=== PATIENT | male | born 1965 | race Caucasian/White ===

== ENCOUNTER 2021-05-08 17:51 | Inpatient (IN) | payer OTHER ==
[~2021-05-08] VITALS: Ht 185.4 cm; Wt 110.3 kg
--- NOTE | 2021-05-08 18:00 | NUR ---
TO ER BED 3. [id number] C/O BLE WEAKNESS,"KNEES GAVE OUT. 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 PT ATTCHED TO MONITOR. DIALYSIS ACCES R CHEST PORT. DR ONEILL AT BEDSIDE
[2021-05-08 19:21] LABS: CALCIUM, SERUM 7.7 mg/dL (8.5-10.1); CARBON DIOXIDE 27 mmol/L (21-32); CHLORIDE 93 mmol/L (98-107); POTASSIUM 4.8 mmol/L (3.5-5.1); SODIUM SERUM 128 mmol/L (136-145); UREA NITROGEN, BLOOD 58 mg/dL (7-18)
[2021-05-08 19:23] LABS: GLUCOSE 474 mg/dL (74-106)
--- NOTE | 2021-05-08 19:23 | NUR ---
glucose 474
[2021-05-08 19:27] LABS: ALANINE AMINOTRANSFERASE 55 U/L (12-78); ALBUMIN 2.1 g/dL (3.4-5.0); ALCOHOL, BLOOD < 3 mg/dL (0-0); ALKALINE PHOSPHATASE 89 U/L (46-116); ASPARTATE AMINOTRANSFERASE 34 U/L (15-37); BILIRUBIN,DIRECT 0.1 mg/dL (0.0-0.2); BILIRUBIN,TOTAL 0.3 mg/dL (0.2-1.0); TOTAL PROTEIN, SERUM 6.2 g/dL (6.4-8.2)
[2021-05-08 19:33] LABS: THYROID STIMULATING HORMONE 0.882 uIU/mL (0.358-3.74)
--- NOTE | 2021-05-08 19:39 | NUR ---
POC ACCUCHECK 421; DR. NINO PONCE AWARE. COVID ANTIGEN SWAB COLLECTED AND SENT TO LAB
[2021-05-08] MEDS ORDERED: INSULIN REGULAR, HUMAN 100 UNIT/ML 10 ML VIAL ONE (19:40)
[2021-05-08 20:00] LABS: BASOPHILS % (AUTO) 0.1 % (0.0-2.0); HEMATOCRIT 21 % (39-51); LYMPHOCYTES # (AUTO) 0.4 K/uL (0.8-4.8); LYMPHOCYTES % (AUTO) 1.9 % (20.0-44.0); MEAN CORPUSCULAR HGB CONC 31 g/dl (31.0-36.0); MEAN CORPUSCULAR VOLUME 94 fL (80-96); MONOCYTES # (AUTO) 0.7 K/uL (0.1-1.30); MONOCYTES % (AUTO) 3.6 % (2.0-12.0); NEUTROPHILS # (AUTO) 19.5 K/uL (1.8-8.9); NEUTROPHILS % (AUTO) 94.4 % (43.0-81.0); PLATELET COUNT (AUTO) 259 K/uL (150-450); RED BLOOD CELL COUNT(AUTO) 2.25 MIL/uL (4.5-6.0); WHITE BLOOD COUNT (AUTO) 20.7 K/uL (4.3-11.0)
[2021-05-08] MEDS ORDERED: INSULIN REGULAR, HUMAN 100 UNIT/ML 10 ML VIAL IV ONE (20:00)
[2021-05-08 20:01] LABS: HEMOGLOBIN 6.6 g/dL (13.5-17.5)
--- NOTE | 2021-05-08 20:02 | NUR ---
HBG 6.6 DR ONEILL AWARE
[2021-05-08 20:27] LABS: LYMPHOCYTES % (MANUAL) 1 % (16-48); NEUTROPHILS % (MANUAL) 99 (42-76)
--- NOTE | 2021-05-08 20:33 | NUR ---
REPEAT POC BS 405
--- NOTE | 2021-05-08 20:40 | NUR ---
PT SIGNED CONSENT FOR BLOOD TRANSFUSION
--- NOTE | 2021-05-08 21:20 | NUR ---
REPORT GIVEN TO MAMADOU KRAUSE RN
--- NOTE | 2021-05-08 22:13 | NUR ---
PT TAKEN TO JIMI VIA ACLS PROTOCOL. ALL BELONGINGS WITH PT. PT TOLERATING TRANSFER WELL
[2021-05-08 22:30] VITALS: BP 157/84
[2021-05-08] MEDS ORDERED: MAG HYDROX/AL HYDROX/SIMETH 30 ML UDC PO PRN (22:30)
[2021-05-08] MEDS ORDERED: ONDANSETRON HCL/PF 4 MG/2 ML VIAL IVP PRN (22:30)
[2021-05-08] MEDS ORDERED: Z GUARD REMEDY 4 OZ OINT TP PRN (22:30)
[2021-05-08] MEDS ORDERED: ZOLPIDEM TARTRATE 5 MG TABLET PO PRN (22:30)
[2021-05-08] MEDS ORDERED: ACETAMINOPHEN 325 MG TABLET PO PRN (22:30)
[2021-05-08] MEDS ORDERED: MAGNESIUM HYDROXIDE 30 ML UDC PO PRN (22:30)
--- NOTE | 2021-05-08 22:30 | NUR ---
JIMI/PETROLEUM TERMINAL PLANT OPERATOR PT RECIEVED FROM ER. SEE FLOWSHEET FOR ASSESSMENT. CALL LIGHT WITHIN REACH. NO ACUTE DISTRESS SEEN AT THIS TIME. PT APPEARS TO BE ANGRY. REFUSED TO TAKE CLOTHES OFF TO PLACE GOWN. PT SIGNED A LOT WHEN TOLD HIM ABOUT PLAN OF CARE. PT WANTS TO EAT HOWEVER BLOOD SUGAR IS 470 IN ER. WILL CHECK AGAIN
[2021-05-08] MEDS ORDERED: DEXTROSE 50%-WATER 50 ML DISP.SYRIN IV PRN (23:00)
--- NOTE | 2021-05-08 23:30 | NUR ---
JIMI/CASE WORK AIDE PT EXPRESSED IDEA ABOUT LEAVING, THAT IS WHY HE DOESN'T WANT TO GET UNDRESSED.
[2021-05-08] MEDS: *INSULIN REGULAR(HUMULIN R)HUM 100 UNIT/ML VIAL SQ PRN (23:34)
[2021-05-09] VITALS (9 sets, daily range): BP systolic 156–201; BP diastolic 75–116
--- NOTE | 2021-05-09 00:10 | NUR ---
JIMI/TICKET TAKER MIDNIGHT SPOT CHECK OF BLOOD SUGAR IS 390, THIS WAS COVERED WITH SLIDING SCALE. WILL CONTINUE TO MONITOR THIS PT.
--- NOTE | 2021-05-09 02:25 | NUR ---
JIMI/WEDDING COORDINATOR PT IS TO GET 1 UNIT PRBC. ORDER WAS VERIFIED FROM STAND GRINDER MD PRINCE WHICH WAS THEN PLACED IN THE COMPUTER BY CHARGE NURSE. BLOOD BANK WAS MADE AWARE. CONSENT WAS SIGNED.
--- NOTE | 2021-05-09 04:40 | NUR ---
JIMI/ROOM SERVICE CLERK PT IS TO HAVE BLOOD, 1 UNIT PRBC FOR LOW H/H WHICH IS 6.6/21. BLOOD IS READY, HOWEVER PT SAID HE IS NOT SURE IF HE WANTS TO RECEIVE THE BLOOD. CHARGE NURSE IS AWARE OF THIS.
[2021-05-09 07:02] LABS: BASOPHILS % (AUTO) 0.1 % (0.0-2.0); LYMPHOCYTES # (AUTO) 0.9 K/uL (0.8-4.8); LYMPHOCYTES % (AUTO) 4.5 % (20.0-44.0); MEAN CORPUSCULAR HGB CONC 32 g/dl (31.0-36.0); MEAN CORPUSCULAR VOLUME 92 fL (80-96); MONOCYTES # (AUTO) 1.2 K/uL (0.1-1.30); MONOCYTES % (AUTO) 6.1 % (2.0-12.0); NEUTROPHILS # (AUTO) 18.2 K/uL (1.8-8.9); NEUTROPHILS % (AUTO) 89.3 % (43.0-81.0); PLATELET COUNT (AUTO) 260 K/uL (150-450); RED BLOOD CELL COUNT(AUTO) 2.23 MIL/uL (4.5-6.0); WHITE BLOOD COUNT (AUTO) 20.4 K/uL (4.3-11.0)
[2021-05-09 07:19] LABS: HEMOGLOBIN 6.5 g/dL (13.5-17.5)
[2021-05-09 07:20] LABS: CALCIUM, SERUM 8.8 mg/dL (8.5-10.1); CREATININE 5.2 mg/dL (0.6-1.3); HEMATOCRIT 20 % (39-51); MAGNESIUM 2.3 mg/dL (1.8-2.4); PHOSPHORUS 4.1 mg/dL (2.5-4.9); POTASSIUM 4.6 mmol/L (3.5-5.1)
[2021-05-09 07:26] LABS: THYROID STIMULATING HORMONE 0.474 uIU/mL (0.358-3.74)
[2021-05-09] MEDS: PANTOPRAZOLE 40 MG TABLET.DR PO SCH ×2 (07:30→08:08)
[2021-05-09] MEDS: BLOOD SUGAR DIAGNOSTIC 1 EACH STRIP VI SCH ×4 (08:08→22:04)
[2021-05-09] MEDS: INSULIN REGULAR, HUMAN 100 UNIT/ML 3 ML VIAL SQ PRN ×3 (08:09→17:16)
--- NOTE | 2021-05-09 11:55 | NUR ---
RN NOTE TOLD BY DR SLAUGHTER THAT HE ATTEMPTED TO CONTACT DR. RUBEN CAMARA FROM [facility], PATIENT'S PERSONAL HIDE BUYER REGARDING POC. DR. SLAUGHTER REPORTED LEFT A MESSAGE AND IS WAITING FOR CALL BACK. WILL CONTINUE TO MONITOR.
[2021-05-09] MEDS ORDERED: LACOSAMIDE ORAL SOLN 50 MG/5 ML UDC PO ONE (12:00)
--- NOTE | 2021-05-09 12:16 | NUR ---
RN NOTE CALLED BACK BY DR. SLAUGHTER REGARDING DR. CAMARA'S WISHES FOR POC. DR. SLAUGHTER REPORTED AGREEMENT FROM DR. MARINA TO PROCEED WITH POC OF BLOOD TRANSFUSION AND HD TODAY.
[2021-05-09] MEDS ORDERED: FURO40TA5 PO (13:38)
[2021-05-09] MEDS ORDERED: LACO50TA2 PO (13:38)
[2021-05-09] MEDS ORDERED: ERGO500093 PO (13:38)
[2021-05-09] MEDS ORDERED: SODI650T PO (13:38)
[2021-05-09] MEDS ORDERED: SEVE800T28 PO (13:38)
[2021-05-09] MEDS ORDERED: PRED20TA PO (13:38)
[2021-05-09] MEDS ORDERED: ATOR40TA PO (13:38)
[2021-05-09] MEDS ORDERED: DOCU-141 PO (13:38)
[2021-05-09] MEDS ORDERED: ASPI-1420 PO (13:38)
[2021-05-09] MEDS ORDERED: AZAT50TA18 PO (13:38)
[2021-05-09] MEDS ORDERED: FOLI0.8T2 PO (13:38)
[2021-05-09] MEDS ORDERED: CARV25TA2 PO (13:38)
[2021-05-09] MEDS ORDERED: LOSA25TA27 PO (13:38)
[2021-05-09] MEDS ORDERED: BUME2TAB7 PO (13:38)
[2021-05-09] MEDS ORDERED: NIFE90TA38 PO (13:38)
--- NOTE | 2021-05-09 14:01 | NUR ---
RN OPENING NOTE PATIENT RECEIVED IN BED, RESTING. PATIENT ON ROOM AIR WITH NO SIGNS OF LABORED BREATHING AT THIS TIME. RIGHT FA 20G SL IN PLACE, RIGHT CHEST WALL HD CATH. NO SIGNS OF ACUTE DISTRESS NOTED AT THIS TIME. BED LOCKED AND IN LOWEST POSITION, CALL LIGHT WITHIN REACH, 2 SIDE RAILS UP. WILL CONTINUE TO MONITOR.
--- NOTE | 2021-05-09 17:05 | NUR ---
RN NOTE BLOOD PRESSURE ELEVATED DURING HD. REQUESTED FROM DR. RUIZ TO REVIEW MED RECON. NO NEW ORDER AT THIS TIME. WILL CONTINUE TO MONITOR.
--- NOTE | 2021-05-09 18:10 | NUR ---
RN NOTE DR. SLAUGHTER CONTACT CONCERNING ELEVATED BLOOD PRESSURE. HD STOPPED DUE TO BP REACHING 201/101. NO RESPONSE AT THIS TIME. WILL CONTINUE TO MONITOR.
--- NOTE | 2021-05-09 18:12 | NUR ---
RN NOTE NO RESPONSE FROM DR. YAÑEZ THROUGH TEXTS OR PHONE CALL. [facility] CALLED AND MESSAGE LEFT. WILL CONTINUE TO MONITOR.
--- NOTE | 2021-05-09 18:41 | NUR ---
RN NOTE DR. YAÑEZ CALLED BACK, ORDERED TO TAKE BP MANUALLY. BP IS 186/108. PER DR. YAÑEZ ORDER, RESUME BLOOD TRANSFUSION AND GIVE LASIX 20 IV ONE TIME AFTER. WILL CONTINUE TO MONITOR.
--- NOTE | 2021-05-09 18:42 | NUR ---
RN NOTE DR. HAIR CONTACTED REGARDING ELEVATED BLOOD PRESSURE. ORDER TO GIVE CLONIDINE 0.1 ONCE. WILL CONTINUE TO MONITOR.
[2021-05-09] MEDS ORDERED: CLONIDINE HCL 0.1 MG TABLET PO ONE (19:00)
--- NOTE | 2021-05-09 19:01 | NUR ---
RN NOTE BLOOD TRANSFUSION ENDED. BLOOD PRESSURE ELEVATED. CLONIDINE GIVEN ORDERED. WILL ENDORSE TO DIRECTOR OF BUSINESS OPERATIONS NURSE.
--- NOTE | 2021-05-09 19:10 | NUR ---
RN NOTES RECEIVED REPORT MORNING RN. PATIENT IS A/O X4 ABLE TO MAKE NEEDS KNOW. WITH IV ACCESS AT RFA # 20 PATENT FLUSHES WELL. S/P HD. VITAL SIGNS TAKEN AND RECORDED AFEBRILE. ALL SAFETY MEASURES IN PLACE AT ALL TIMES. HOB ELEVATED. CALL LIGHT WITHIN REACH. WILL CLOSELY MONITOR THE PATIENT
--- NOTE | 2021-05-09 19:25 | NUR ---
RN CLOSING NOTE PATIENT REMAINS IN BED, AWAKE, A&OX4. PATIENT ON ROOM AIR WITH NO SIGNS OF LABORED BREATHING AT THIS TIME. RIGHT FA 20G SL IN PLACE, RIGHT CHEST WALL HD CATH. NO SIGNS OF ACUTE DISTRESS NOTED AT THIS TIME. BP REMAINS ELEVATED AT THIS TIME. HD COMPLETED, 3,000 CC REMOVED AND BLOOD TRANSFUSION COMPLETED. BED LOCKED AND IN LOWEST POSITION, CALL LIGHT WITHIN REACH, 2 SIDE RAILS UP. WILL ENDORSE TO STATUS CONTROLLER NURSE.
[2021-05-09] MEDS ORDERED: FUROSEMIDE 20 MG/2 ML VIAL IV ONE (19:30)
--- NOTE | 2021-05-09 20:40 | NUR ---
RN NOTES NOTED BP WAS ELEVATED 180/85. DR. LAY INFORMED WITH NEW ORDER HYDRALAZINE 25 MG PO. PATIENT REFUSED TO TAKE THE MEDICATION NOW HE WILL LATER HE JUST WANT TO SLEEP.
[2021-05-09] MEDS: LACOSAMIDE 50 MG TABLET PO SCH (21:20)
[2021-05-09] MEDS: *INSULIN REGULAR(HUMULIN R)HUM 100 UNIT/ML VIAL SQ PRN (21:28)
[2021-05-09] MEDS ORDERED: hydrALAZINE HCL 25 MG TABLET PO PRN (23:00)
[2021-05-10] VITALS: BP 190/97
--- NOTE | 2021-05-10 | NUR ---
RN NOTES PATIENT BLOOD PRESSURE IS 190/97. DR LYA ORDERED TO START LOSARTAN 25 MG AND CARVEDILOL 50 MG PO. PATIENT REFUSED AND SAID "ALBERT HE WILL TAKE LATER" EXPLAINED TO PATIENT THAT HIS BLOOD PRESSURE IS ELEVATED AND HE NEEDS TO TAKE HIS MEDICATION STILL REFUSED. WILL MONITOR THE PATIENT
[2021-05-10] MEDS: CARVEDILOL 12.5 MG TABLET PO SCH ×3 (00:01→16:18)
[2021-05-10] MEDS: LOSARTAN POTASSIUM 25 MG TABLET PO SCH ×2 (00:01→08:04)
--- NOTE | 2021-05-10 02:30 | NUR ---
RN NOTES BP IS 200/92 MM/HG PRN HYDRALAZINE AND LOSARTAN AND CARVEDILOL GIVEN. WILL CONTINUE TO MONITOR.
[2021-05-10 04:00] VITALS: BP 200/100
--- NOTE | 2021-05-10 04:15 | NUR ---
RN NOTES PATIENT BP STILL ELEVATED 199/89. DR LAY INFORMED WITH NEW ORDER TO GIVE CLONIDINE 0.1 MG 1 TAB. WILL CONTINUE TO MONITOR
[2021-05-10] MEDS ORDERED: CLONIDINE HCL 0.1 MG TABLET PO ONE (05:00)
--- NOTE | 2021-05-10 05:40 | NUR ---
RN NOTES BP STILL ELEVATED BP 200/[address] LAY INFORMED.
--- NOTE | 2021-05-10 06:54 | NUR ---
RN NOTES DR LAY ORDERED LABETALOL 10 MG IV X1 DOSE NOW. WILL CONTINUE TO MONITOR
--- NOTE | 2021-05-10 06:58 | NUR ---
RN NOTE PATIENT REMAINS IN BED, A&OX4. PATIENT ON ROOM AIR WITH NO SIGNS OF LABORED BREATHING AT THIS TIME. RIGHT FA 20G SL IN PLACE, RIGHT CHEST WALL HD CATH. NO SIGNS OF ACUTE DISTRESS NOTED AT THIS TIME. BP REMAINS ELEVATED AT THIS TIME. BED LOCKED AND IN LOWEST POSITION, CALL LIGHT WITHIN REACH, 2 SIDE RAILS UP. WILL ENDORSE TO MORNING SHIFT NURSE FOR PATRICK.
[2021-05-10] MEDS ORDERED: LABETALOL HCL IV 100MG VIAL IV ONE (07:00)
--- NOTE | 2021-05-10 07:11 | NUR ---
RN NOTES LABETALOL 10 MG IV GIVEN ORDERED, WILL CONTINUE TO MONITOR
--- NOTE | 2021-05-10 07:51 | NUR ---
RN OPENING NOTE PATIENT RECEIVED IN BED, RESTING. PATIENT ON ROOM AIR WITH NO SIGNS OF LABORED BREATHING AT THIS TIME. RIGHT FA 20G SL IN PLACE, RIGHT CHEST WALL HD CATH. TEMPERATURE OF 101.3 REPORTED BY REPAIR SERVICE DISPATCHER, TYLENOL TO BE GIVEN. BLOOD PRESSURE REMAINS ELEVATED AT THIS TIME, WILL GIVE PO AM MEDS AND CONTINUE TO MONITOR. NO SIGNS OF ACUTE DISTRESS NOTED AT THIS TIME. BED LOCKED AND IN LOWEST POSITION, CALL LIGHT WITHIN REACH, 2 SIDE RAILS UP. WILL CONTINUE TO MONITOR.
[2021-05-10] MEDS: BLOOD SUGAR DIAGNOSTIC 1 EACH STRIP VI SCH ×4 (07:56→21:16)
[2021-05-10 08:00] VITALS: BP 194/83
[2021-05-10] MEDS: LACOSAMIDE 50 MG TABLET PO SCH ×2 (08:04→20:15)
[2021-05-10] MEDS: PANTOPRAZOLE 40 MG TABLET.DR PO SCH (08:04)
[2021-05-10] MEDS: INSULIN REGULAR, HUMAN 100 UNIT/ML 3 ML VIAL SQ PRN ×4 (08:05→21:16)
[2021-05-10 09:00] LABS: BASOPHILS # (AUTO) 0.1 K/uL (0.0-0.2); BASOPHILS % (AUTO) 0.5 % (0.0-2.0); EOSINOPHILS % (AUTO) 0.2 % (0.0-6.0); HEMATOCRIT 23 % (39-51); HEMOGLOBIN 7.2 g/dL (13.5-17.5); LYMPHOCYTES # (AUTO) 0.8 K/uL (0.8-4.8); LYMPHOCYTES % (AUTO) 4.7 % (20.0-44.0); MEAN CORPUSCULAR HGB CONC 31 g/dl (31.0-36.0); MEAN CORPUSCULAR VOLUME 91 fL (80-96); MONOCYTES # (AUTO) 1.3 K/uL (0.1-1.30); MONOCYTES % (AUTO) 7.5 % (2.0-12.0); NEUTROPHILS # (AUTO) 14.6 K/uL (1.8-8.9); NEUTROPHILS % (AUTO) 87.1 % (43.0-81.0); PLATELET COUNT (AUTO) 243 K/uL (150-450); WHITE BLOOD COUNT (AUTO) 16.7 K/uL (4.3-11.0)
[2021-05-10] MEDS ORDERED: LACOSAMIDE 50 MG TABLET PO SCH (09:00)
[2021-05-10] MEDS ORDERED: CARVEDILOL 12.5 MG TABLET PO SCH (09:00)
[2021-05-10] MEDS: FUROSEMIDE 40 MG TABLET PO SCH (09:00)
[2021-05-10] MEDS: predniSONE 20 MG TABLET PO SCH (09:11)
[2021-05-10] MEDS: ASPIRIN EC 81 MG TABLET.DR PO SCH (09:11)
[2021-05-10] MEDS: VIT B CMPLX 3/FA/VIT C/BIOTIN 1 TAB TABLET PO SCH (09:12)
[2021-05-10] MEDS: SODIUM BICARBONATE 650 MG TABLET PO SCH ×3 (09:12→16:17)
[2021-05-10] MEDS: AZATHIOPRINE 50 MG TABLET PO SCH (09:12)
[2021-05-10] MEDS: NIFEdipine XL (30MG) 30 MG TAB PO SCH (09:13)
[2021-05-10 09:46] LABS: LYMPHOCYTES % (MANUAL) 3 % (16-48); MONOCYTES % (MANUAL) 6 % (0-11.0); NEUTROPHILS % (MANUAL) 91 (42-76)
[2021-05-10 10:19] LABS: CALCIUM, SERUM 7.8 mg/dL (8.5-10.1); CREATININE 4.2 mg/dL (0.6-1.3); POTASSIUM 4.6 mmol/L (3.5-5.1)
--- NOTE | 2021-05-10 11:02 | NUR ---
RN NOTE CRITICAL LAB VALUE OF GLUCOSE [address] YAÑEZ AWARE OF ELEVATED GLUCOSE LEVEL FROM THIS AM ACCU CHECK. WILL CONTINUE TO MONITOR.
[2021-05-10 12:00] VITALS: BP 166/92
[2021-05-10] MEDS: SEVELAMER CARBONATE 800 MG TABLET PO SCH ×2 (12:17→17:45)
[2021-05-10 16:00] VITALS: BP 188/98
[2021-05-10] MEDS: BUMETANIDE (1 MG) 1 MG TABLET PO SCH (17:45)
[2021-05-10] MEDS: DOCUSATE SODIUM 100 MG CAPSULE PO SCH (17:45)
--- NOTE | 2021-05-10 18:42 | NUR ---
RN CLOSING NOTE PATIENT REMAINS IN BED, AWAKE, A&OX4. PATIENT ON ROOM AIR WITH NO SIGNS OF LABORED BREATHING AT THIS TIME. RIGHT FA 20G SL IN PLACE, RIGHT CHEST WALL HD CATH. HD SCHEDULED FOR TOMORROW. NO SIGNS OF ACUTE DISTRESS NOTED AT THIS TIME. BED LOCKED AND IN LOWEST POSITION, CALL LIGHT WITHIN REACH, 2 SIDE RAILS UP. WILL ENDORSE TO OFFENDER EMPLOYMENT SPECIALIST NURSE.
--- NOTE | 2021-05-10 19:10 | NUR ---
RN NOTE RECEIVED PATIENT IN BED RESTING ALERT ORIENTED X4 VERBALLY RESPONSIVE ON ROOM AIR O2:95% IV SITE IS ON RIGHT FOREARM AN D RIGHT CHEST WALL HD CATH INTACT PATENT.SAFETY MEASURE IMPLEMENT BED IN LOW POSITION AND LOCKED,CALL LIGHT WITHIN REACH HEAD OF THE BED ELEVATED CONTINUE TO MONITOR.
[2021-05-10 20:00] VITALS: BP 126/66
[2021-05-10] MEDS: ATORVASTATIN 40 MG TABLET PO SCH (21:16)
[2021-05-11] VITALS: BP 138/71
[2021-05-11 04:00] VITALS: BP 142/79
--- NOTE | 2021-05-11 06:41 | NUR ---
RN NOTE PATIENT REMAINS ON ALERT ORIENTED X4 VERBALLY RESPONSIVE NO SOB NOT ACUTE DISTRESS NOTED,ALL DUE MEDS GIVEN MD ORDERED KEPT CLEAN AND DRY ALL THE TIME,ALL NEEDS MET ENDORSE NEXT COMING SHIFT FOR CONTINUATION OF CARE.
--- NOTE | 2021-05-11 07:40 | NUR ---
RN OPENING NOTE PATIENT RECEIVED IN BED A/O X 4 , RESTING. PATIENT ON ROOM AIR WITH NO SIGNS OF LABORED BREATHING AT THIS TIME. RIGHT FA 20G SL IN PLACE, RIGHT CHEST WALL HD CATH. NO SIGNS OF ACUTE DISTRESS NOTED AT THIS TIME.SAFETY PROTOCOL IN PLACE BED LOCKED AND IN LOWEST POSITION, CALL LIGHT WITHIN REACH, 2 SIDE RAILS UP.
[2021-05-11 08:00] VITALS: BP 175/91
[2021-05-11] MEDS: AZATHIOPRINE 50 MG TABLET PO SCH (08:28)
[2021-05-11] MEDS: predniSONE 20 MG TABLET PO SCH (08:28)
[2021-05-11] MEDS: SODIUM BICARBONATE 650 MG TABLET PO SCH ×4 (08:28→17:00)
[2021-05-11] MEDS: PANTOPRAZOLE 40 MG TABLET.DR PO SCH (08:29)
[2021-05-11] MEDS: SEVELAMER CARBONATE 800 MG TABLET PO SCH ×3 (08:29→18:00)
[2021-05-11] MEDS: CARVEDILOL 12.5 MG TABLET PO SCH ×3 (08:29→17:00)
[2021-05-11] MEDS: FUROSEMIDE 40 MG TABLET PO SCH (08:30)
[2021-05-11] MEDS: LOSARTAN POTASSIUM 25 MG TABLET PO SCH (08:30)
[2021-05-11] MEDS: LACOSAMIDE 50 MG TABLET PO SCH ×2 (08:30→21:43)
[2021-05-11] MEDS: VIT B CMPLX 3/FA/VIT C/BIOTIN 1 TAB TABLET PO SCH (08:31)
[2021-05-11] MEDS: ASPIRIN EC 81 MG TABLET.DR PO SCH (08:31)
[2021-05-11] MEDS: NIFEdipine XL (30MG) 30 MG TAB PO SCH (08:31)
[2021-05-11] MEDS: BLOOD SUGAR DIAGNOSTIC 1 EACH STRIP VI SCH ×4 (08:32→21:47)
[2021-05-11] MEDS: INSULIN REGULAR, HUMAN 100 UNIT/ML 3 ML VIAL SQ PRN ×3 (08:33→18:36)
[2021-05-11 12:44] LABS: BASOPHILS % (AUTO) 0.1 % (0.0-2.0); EOSINOPHILS % (AUTO) 0.1 % (0.0-6.0); HEMATOCRIT 25 % (39-51); HEMOGLOBIN 7.8 g/dL (13.5-17.5); LYMPHOCYTES # (AUTO) 0.3 K/uL (0.8-4.8); LYMPHOCYTES % (AUTO) 1.4 % (20.0-44.0); MEAN CORPUSCULAR HGB CONC 31 g/dl (31.0-36.0); MEAN CORPUSCULAR VOLUME 91 fL (80-96); MONOCYTES # (AUTO) 0.7 K/uL (0.1-1.30); MONOCYTES % (AUTO) 3.3 % (2.0-12.0); NEUTROPHILS # (AUTO) 21.1 K/uL (1.8-8.9); NEUTROPHILS % (AUTO) 95.1 % (43.0-81.0); PLATELET COUNT (AUTO) 270 K/uL (150-450); RED BLOOD CELL COUNT(AUTO) 2.75 MIL/uL (4.5-6.0); WHITE BLOOD COUNT (AUTO) 22.2 K/uL (4.3-11.0)
[2021-05-11 12:56] LABS: CALCIUM, SERUM 7.7 mg/dL (8.5-10.1); POTASSIUM 4.4 mmol/L (3.5-5.1)
[2021-05-11] MEDS ORDERED: EPOETIN ALFA-EPBX 4,000 UNIT/ML VIAL IV SCH (15:00)
--- NOTE | 2021-05-11 15:21 | NUR ---
RN NOTE INFORMED PROVIDER OF ELEVATED BLOOD SUGAR, DISCUSSED WBC COUNT ELEVATION. PER PROVIDER SEND CULTURE TO LAB. ORDER PLACED FOR SPUTUM, URINE AND BLOOD CX.
[2021-05-11 16:00] VITALS: BP 146/65
--- NOTE | 2021-05-11 17:12 | NUR ---
@ 1700 PATIENT REFUSED SODIUM BICARBONATE 650 MG 2 TABS @1700 hold on Carvedilol 125 mg Po meds 2 tabs because of dialysis
[2021-05-11] MEDS: BUMETANIDE (1 MG) 1 MG TABLET PO SCH (18:00)
[2021-05-11] MEDS: DOCUSATE SODIUM 100 MG CAPSULE PO SCH (18:00)
--- NOTE | 2021-05-11 19:05 | NUR ---
RN CLOSING NOTE PATIENT REMAINS IN BED, AWAKE, A&OX4. PATIENT ON ROOM AIR WITH NO SIGNS OF LABORED BREATHING AT THIS TIME. RIGHT FA 20G SL IN PLACE, RIGHT CHEST WALL HD CATH. HD SCHEDULED FOR TOMORROW. NO SIGNS OF ACUTE DISTRESS NOTED AT THIS TIME. BED LOCKED AND IN LOWEST POSITION, CALL LIGHT WITHIN REACH, 2 SIDE RAILS UP. WILL ENDORSE TO DRAFT ROLLER PICKER NURSE.
--- NOTE | 2021-05-11 19:30 | NUR ---
RN OPENING NOTES RECEIVED PATIENT IN BED A/OX4. IN HIS OWN PERSONAL CLOTHES. NO S/S OF APPARENT DISTRESS ON ROOM AIR. DENIES PAIN AT THIS TIME. AMBULATORY WITH STEADY GAITS. NO IV FLUIDS RUNNING AT THIS TIME. SAFETY IN PLACE. WILL CONTINUE WITH PATIENT CARE PLAN.
[2021-05-11] MEDS: ATORVASTATIN 40 MG TABLET PO SCH (21:44)
[2021-05-11] MEDS: *INSULIN REGULAR(HUMULIN R)HUM 100 UNIT/ML VIAL SQ PRN (21:52)
[2021-05-12] VITALS: BP 126/72
--- NOTE | 2021-05-12 04:00 | NUR ---
MS RN NOTE PATIENT REFUSED MORNING V/S
--- NOTE | 2021-05-12 06:43 | NUR ---
MS RN CLOSING NOTE PATIENT REMAINS STABLE. IN BED WITH EYES CLOSED, EASY TO AROUSE. NO S/S OF APPARENT DISTRESS ON ROOM AIR. DENIES PAIN AND DISCOMFORT. NO FLUID RUNNING AT THIS TIME. ALL NEEDS ATTENDED. ALL SCHEDULED MEDICATIONS ADMINISTERED. SAFETY KEPT IN PLACE THE WHOLE SHIFT. WILL ENDORSE TO MORNING SHIFT RN FOR CONTINUITY OF CARE.
[2021-05-12] MEDS: BLOOD SUGAR DIAGNOSTIC 1 EACH STRIP VI SCH ×4 (07:20→22:54)
[2021-05-12] MEDS: INSULIN REGULAR, HUMAN 100 UNIT/ML 3 ML VIAL SQ PRN ×3 (07:23→16:56)
--- NOTE | 2021-05-12 07:40 | NUR ---
MS RN OPENING NOTE PATIENT IS AWAKE SITTING AT EDGE OF BED. A/O X 3. NO S/SX OF DISTRESS NOTED. NO SOB. BREATHING IS EVEN AND UNLABORED, TOLERATING WELL ON ROOM AIR. NO C/O PAIN. IV ACCESS RFA#20 PATENT AND INTACT. PT WITH RCW HD CATH PATENT AND INTACT. SAFETY MEASURES IN PLACE WITH BED LOCKED IN LOW POSITION WITH SIDE RAILS UP X 2. CALL LIGHT IS WITHIN REACH. WILL CONTINUE TO MONITOR PATIENT THROUGHOUT SHIFT.
[2021-05-12 08:00] VITALS: BP 126/72
[2021-05-12] MEDS: SEVELAMER CARBONATE 800 MG TABLET PO SCH ×3 (08:59→18:11)
[2021-05-12] MEDS: LACOSAMIDE 50 MG TABLET PO SCH ×2 (09:00→22:03)
[2021-05-12] MEDS: VIT B CMPLX 3/FA/VIT C/BIOTIN 1 TAB TABLET PO SCH (09:00)
[2021-05-12] MEDS: predniSONE 20 MG TABLET PO SCH (09:00)
[2021-05-12] MEDS: NIFEdipine XL (30MG) 30 MG TAB PO SCH (09:00)
[2021-05-12] MEDS: LOSARTAN POTASSIUM 25 MG TABLET PO SCH (09:00)
[2021-05-12] MEDS: AZATHIOPRINE 50 MG TABLET PO SCH (09:00)
[2021-05-12] MEDS: CARVEDILOL 12.5 MG TABLET PO SCH ×2 (09:01→16:39)
[2021-05-12] MEDS: FUROSEMIDE 40 MG TABLET PO SCH (09:02)
[2021-05-12] MEDS: PANTOPRAZOLE 40 MG TABLET.DR PO SCH (09:16)
[2021-05-12] MEDS: ASPIRIN EC 81 MG TABLET.DR PO SCH (09:16)
[2021-05-12] MEDS: SODIUM BICARBONATE 650 MG TABLET PO SCH ×3 (09:16→16:38)
[2021-05-12 09:58] LABS: BASOPHILS % (AUTO) 0.1 % (0.0-2.0); EOSINOPHILS % (AUTO) 0.3 % (0.0-6.0); HEMATOCRIT 23 % (39-51); HEMOGLOBIN 7.3 g/dL (13.5-17.5); LYMPHOCYTES # (AUTO) 1.2 K/uL (0.8-4.8); LYMPHOCYTES % (AUTO) 5.4 % (20.0-44.0); MEAN CORPUSCULAR HGB CONC 32 g/dl (31.0-36.0); MEAN CORPUSCULAR VOLUME 90 fL (80-96); MONOCYTES # (AUTO) 1.3 K/uL (0.1-1.30); MONOCYTES % (AUTO) 5.6 % (2.0-12.0); NEUTROPHILS # (AUTO) 20.5 K/uL (1.8-8.9); NEUTROPHILS % (AUTO) 88.6 % (43.0-81.0); PLATELET COUNT (AUTO) 264 K/uL (150-450); RED BLOOD CELL COUNT(AUTO) 2.57 MIL/uL (4.5-6.0); WHITE BLOOD COUNT (AUTO) 23.2 K/uL (4.3-11.0)
[2021-05-12 10:28] LABS: CALCIUM, SERUM 7.4 mg/dL (8.5-10.1); CREATININE 4.3 mg/dL (0.6-1.3); POTASSIUM 4.6 mmol/L (3.5-5.1)
[2021-05-12 16:00] VITALS: BP 136/74
--- NOTE | 2021-05-12 16:39 | NUR ---
RN NOTE SPUTUM SPECIMEN COLLECTED AND SENT TO LAB.
[2021-05-12] MEDS: DOCUSATE SODIUM 100 MG CAPSULE PO SCH (17:16)
[2021-05-12] MEDS: BUMETANIDE (1 MG) 1 MG TABLET PO SCH (18:11)
--- NOTE | 2021-05-12 19:23 | NUR ---
MS RN CLOSING NOTE PATIENT IS AWAKE SITTING AT EDGE OF BED. A/O X 3. NO S/SX OF DISTRESS NOTED. NO SOB. BREATHING IS EVEN AND UNLABORED, TOLERATING WELL ON ROOM AIR. NO C/O PAIN. IV ACCESS RFA#20 PATENT AND INTACT. PT WITH RCW HD CATH PATENT AND INTACT. SAFETY MEASURES IN PLACE WITH BED LOCKED IN LOW POSITION WITH SIDE RAILS UP X 2. CALL LIGHT IS WITHIN REACH. WILL ENDORSE CONTINUITY OF CARE TO NEXT SHIFT.
--- NOTE | 2021-05-12 19:35 | NUR ---
RN NOTE PT RECEIVED IN BED. PT IS ON ROOM AIR SHOWING NO S/S OF RESP DISTRESS. BREATHING EVEN AND UNLABORED. PT IS A/OX3-4. PT IS AMBULATORY AND ABLE TO VERBALIZE NEEDS. ON CCHO DIET. IV ACCESS NOTED ON RIGHT FA #20. LINES FLUSHED, PATENT, AND INTACT WITH NO INFILTRATION. RIGHT CW HD CATH NOTED. ALL SAFETY MEASURES IMPLEMENTED. HOB ELEVATED. CALL LIGHT WITHIN REACH. BED ALARM ON. BED LOCKED AND IN LOWEST POSITION. SIDE RAILS UP. WILL CONTINUE TO MONITOR AND ASSESS FOR ANY CHANGES DURING SHIFT.
[2021-05-12 22:00] VITALS: BP 153/85
[2021-05-12] MEDS: ATORVASTATIN 40 MG TABLET PO SCH (22:03)
[2021-05-12] MEDS: INSULIN GLARGINE, 100 UNIT/ML CARTRIDGE SQ SCH (22:56)
[2021-05-12] MEDS: *INSULIN REGULAR(HUMULIN R)HUM 100 UNIT/ML VIAL SQ PRN (22:56)
[2021-05-13 04:00] VITALS: BP 165/87
--- NOTE | 2021-05-13 07:04 | NUR ---
RN NOTE NO CHANGES IN PT CONDITION DURING SHIFT. PT IS ON ROOM AIR SHOWING NO S/S OF RESP DISTRESS. BREATHING EVEN AND UNLABORED. PT IS A/OX3-4. PT IS AMBULATORY AND ABLE TO VERBALIZE NEEDS. ON CCHO DIET. IV ACCESS NOTED ON RIGHT FA #20. LINES FLUSHED, PATENT, AND INTACT WITH NO INFILTRATION. RIGHT CW HD CATH NOTED. ALL SAFETY MEASURES IMPLEMENTED. HOB ELEVATED. CALL LIGHT WITHIN REACH. BED ALARM ON. BED LOCKED AND IN LOWEST POSITION. SIDE RAILS UP. WILL ENDORSE TO MORNING SHIFT RN FOR PATRICK.
[2021-05-13 07:47] LABS: BASOPHILS % (AUTO) 0.1 % (0.0-2.0); EOSINOPHILS % (AUTO) 0.3 % (0.0-6.0); HEMATOCRIT 24 % (39-51); HEMOGLOBIN 7.6 g/dL (13.5-17.5); LYMPHOCYTES # (AUTO) 1.2 K/uL (0.8-4.8); MEAN CORPUSCULAR HGB CONC 32 g/dl (31.0-36.0); MEAN CORPUSCULAR VOLUME 90 fL (80-96); MONOCYTES # (AUTO) 1.3 K/uL (0.1-1.30); MONOCYTES % (AUTO) 5.8 % (2.0-12.0); NEUTROPHILS # (AUTO) 20.5 K/uL (1.8-8.9); NEUTROPHILS % (AUTO) 88.8 % (43.0-81.0); PLATELET COUNT (AUTO) 289 K/uL (150-450); RED BLOOD CELL COUNT(AUTO) 2.65 MIL/uL (4.5-6.0)
--- NOTE | 2021-05-13 07:49 | NUR ---
RN NOTE PT RECEIVED IN BED. PT IS ON ROOM AIR SHOWING NO S/S OF RESP DISTRESS. BREATHING EVEN AND UNLABORED. PT IS A/OX3-4. PT IS AMBULATORY AND ABLE TO VERBALIZE NEEDS. ON CCHO DIET. IV ACCESS NOTED ON RIGHT FA #20. LINES FLUSHED, PATENT, AND INTACT WITH NO INFILTRATION. RIGHT CW HD CATH NOTED. ALL SAFETY MEASURES IMPLEMENTED. HOB ELEVATED. CALL LIGHT WITHIN REACH. BED ALARM ON. BED LOCKED AND IN LOWEST POSITION. SIDE RAILS UP.
[2021-05-13 08:00] VITALS: BP 167/94
[2021-05-13 08:01] LABS: CALCIUM, SERUM 8.1 mg/dL (8.5-10.1); CREATININE 4.9 mg/dL (0.6-1.3); POTASSIUM 4.5 mmol/L (3.5-5.1)
[2021-05-13] MEDS ORDERED: ERGOCALCIFEROL (VITAMIN D 2) 50,000 UNIT CAPSULE PO SCH (09:00)
[2021-05-13] MEDS: BLOOD SUGAR DIAGNOSTIC 1 EACH STRIP VI SCH ×4 (09:34→22:00)
[2021-05-13] MEDS: PANTOPRAZOLE 40 MG TABLET.DR PO SCH (09:34)
[2021-05-13] MEDS: LOSARTAN POTASSIUM 25 MG TABLET PO SCH (09:35)
[2021-05-13] MEDS: ASPIRIN EC 81 MG TABLET.DR PO SCH (09:35)
[2021-05-13] MEDS: SODIUM BICARBONATE 650 MG TABLET PO SCH ×3 (09:35→17:19)
[2021-05-13] MEDS: NIFEdipine XL (30MG) 30 MG TAB PO SCH (09:36)
[2021-05-13] MEDS: CARVEDILOL 12.5 MG TABLET PO SCH ×2 (09:36→17:20)
[2021-05-13] MEDS: predniSONE 20 MG TABLET PO SCH (09:37)
[2021-05-13] MEDS: FUROSEMIDE 40 MG TABLET PO SCH (09:37)
[2021-05-13] MEDS: AZATHIOPRINE 50 MG TABLET PO SCH (09:37)
[2021-05-13] MEDS: LACOSAMIDE 50 MG TABLET PO SCH ×2 (09:37→21:36)
[2021-05-13] MEDS: VIT B CMPLX 3/FA/VIT C/BIOTIN 1 TAB TABLET PO SCH (09:37)
[2021-05-13] MEDS: SEVELAMER CARBONATE 800 MG TABLET PO SCH ×3 (09:39→17:19)
[2021-05-13] MEDS ORDERED: PIPERACILLIN /TAZOBACTAM 3.375 G in IV D5W 50 ML IV SCH (12:00)
[2021-05-13] MEDS ORDERED: VANCOMYCIN 1 GM in IV D5W 250 ML IV ONE (12:00)
[2021-05-13] MEDS: INSULIN REGULAR, HUMAN 100 UNIT/ML 3 ML VIAL SQ PRN ×2 (12:51→17:34)
[2021-05-13] MEDS: PIPERACILLIN /TAZOBACTAM 2.25 G in IV D5W 50 ML IV SCH ×2 (14:14→21:36)
[2021-05-13 16:00] VITALS: BP 135/69
[2021-05-13] MEDS: BUMETANIDE (1 MG) 1 MG TABLET PO SCH (17:20)
[2021-05-13] MEDS: DOCUSATE SODIUM 100 MG CAPSULE PO SCH (17:20)
--- NOTE | 2021-05-13 19:10 | NUR ---
MS RN OPENING NOTES: RECEIVED PATIENT RESTING IN BED, AWAKE, A/O X4. NO S/S OF DISTRESS NOTED. NO COMPLAIN OF PAIN. CALL LIGHT WITHIN REACH. BED IN LOWEST AND LOCKED POSITION. HOB ELEVATED. HAD HD TODAY WITH 2L OUT.
--- NOTE | 2021-05-13 19:24 | NUR ---
RN CLOSING NOTE PATIENT IS AWAKE SITTING AT EDGE OF BED. A/O X 3. NO S/SX OF DISTRESS NOTED. NO SOB. BREATHING IS EVEN AND UNLABORED, TOLERATING WELL ON ROOM AIR. NO C/O PAIN. IV ACCESS RFA#20 PATENT AND INTACT. PT WITH RCW HD CATH PATENT AND INTACT. SAFETY MEASURES IN PLACE WITH BED LOCKED IN LOW POSITION WITH SIDE RAILS UP X 2. CALL LIGHT IS WITHIN REACH. WILL ENDORSE TO NIGHT NURSE FOR PATRICK .
[2021-05-13 20:00] VITALS: BP 124/68
[2021-05-13] MEDS: ATORVASTATIN 40 MG TABLET PO SCH (21:37)
[2021-05-13] MEDS: *INSULIN REGULAR(HUMULIN R)HUM 100 UNIT/ML VIAL SQ PRN (21:40)
[2021-05-13] MEDS: INSULIN GLARGINE, 100 UNIT/ML CARTRIDGE SQ SCH (21:41)
[2021-05-14] MEDS: PIPERACILLIN /TAZOBACTAM 2.25 G in IV D5W 50 ML IV SCH ×2 (04:30→12:17)
[2021-05-14 07:28] LABS: BASOPHILS % (AUTO) 0.1 % (0.0-2.0); HEMATOCRIT 24 % (39-51); HEMOGLOBIN 7.5 g/dL (13.5-17.5); LYMPHOCYTES # (AUTO) 0.5 K/uL (0.8-4.8); LYMPHOCYTES % (AUTO) 2.2 % (20.0-44.0); MEAN CORPUSCULAR HGB CONC 31 g/dl (31.0-36.0); MEAN CORPUSCULAR VOLUME 90 fL (80-96); MONOCYTES % (AUTO) 4.4 % (2.0-12.0); NEUTROPHILS # (AUTO) 21.4 K/uL (1.8-8.9); NEUTROPHILS % (AUTO) 93.3 % (43.0-81.0); PLATELET COUNT (AUTO) 296 K/uL (150-450); RED BLOOD CELL COUNT(AUTO) 2.66 MIL/uL (4.5-6.0); WHITE BLOOD COUNT (AUTO) 22.9 K/uL (4.3-11.0)
--- NOTE | 2021-05-14 07:30 | NUR ---
RN OPENING NOTE PATIENT IS AWAKE SITTING IN CHAIR. A/O X 3. NO S/SX OF DISTRESS NOTED. NO SOB. BREATHING IS EVEN AND UNLABORED, TOLERATING WELL ON ROOM AIR. NO C/O PAIN. IV ACCESS RFA#20 PATENT AND INTACT. PT WITH RCW HD CATH PATENT AND INTACT. SAFETY MEASURES IN PLACE WITH BED LOCKED IN LOW POSITION WITH SIDE RAILS UP X 2. CALL LIGHT IS WITHIN REACH. WILL CONTINUE TO MONITOR.
[2021-05-14 07:31] LABS: CALCIUM, SERUM 8.1 mg/dL (8.5-10.1); CREATININE 4.4 mg/dL (0.6-1.3); POTASSIUM 5.2 mmol/L (3.5-5.1)
[2021-05-14] MEDS: BLOOD SUGAR DIAGNOSTIC 1 EACH STRIP VI SCH ×2 (08:01→12:07)
[2021-05-14] MEDS: FUROSEMIDE 40 MG TABLET PO SCH (09:31)
[2021-05-14] MEDS: LACOSAMIDE 50 MG TABLET PO SCH (09:31)
[2021-05-14] MEDS: CARVEDILOL 12.5 MG TABLET PO SCH ×2 (09:31→17:00)
[2021-05-14] MEDS: predniSONE 20 MG TABLET PO SCH (09:31)
[2021-05-14] MEDS: VIT B CMPLX 3/FA/VIT C/BIOTIN 1 TAB TABLET PO SCH (09:31)
[2021-05-14] MEDS: NIFEdipine XL (30MG) 30 MG TAB PO SCH (09:32)
[2021-05-14] MEDS: LOSARTAN POTASSIUM 25 MG TABLET PO SCH (09:32)
[2021-05-14] MEDS: ASPIRIN EC 81 MG TABLET.DR PO SCH (09:32)
[2021-05-14] MEDS: AZATHIOPRINE 50 MG TABLET PO SCH (09:32)
[2021-05-14] MEDS: SODIUM BICARBONATE 650 MG TABLET PO SCH ×3 (09:34→17:00)
[2021-05-14] MEDS: SEVELAMER CARBONATE 800 MG TABLET PO SCH ×2 (09:34→12:09)
[2021-05-14 10:00] VITALS: BP 153/81
[2021-05-14] MEDS: PANTOPRAZOLE 40 MG TABLET.DR PO SCH (10:05)
[2021-05-14] MEDS: INSULIN REGULAR, HUMAN 100 UNIT/ML 3 ML VIAL SQ PRN ×2 (10:22→12:10)
[2021-05-14] MEDS ORDERED: VANCOMYCIN 500 MG in IV D5W 100 ML IV PRN (13:00)
[2021-05-14] MEDS ORDERED: EPOE40007 IV (15:48)
[2021-05-14] MEDS ORDERED: HYDR-4076 PO (15:48)
[2021-05-14] MEDS ORDERED: BLOO1EAC70 MC (15:54)
[2021-05-14] MEDS ORDERED: LANC1COM7 (15:54)
[2021-05-14] MEDS ORDERED: INSU100C10 SQ (15:54)
[2021-05-14] MEDS ORDERED: INSU100V7 SQ (15:54)
[2021-05-14] MEDS ORDERED: VANCOMYCIN 1 GM in IV D5W 250ml IV ONE (16:00)
--- NOTE | 2021-05-14 17:16 | NUR ---
GREEN MEAT PACKER NOTE PATIENT REMAINED STABLE THROUGHOUT SHIFT. PATIENT IS AWAKE SITTING IN CHAIR. A/O X 3. NO S/SX OF DISTRESS NOTED. NO SOB. BREATHING IS EVEN AND UNLABORED, TOLERATING WELL ON ROOM AIR. NO C/O PAIN. IV ACCESS RFA#20 PATENT AND INTACT. REMOVED FULLY INTACT. PT WITH RCW HD CATH PATENT AND INTACT. PATIENT OK TO BE DISCHARGED PER MD ANGELI HESTER. PT VERBALLY CONFIRMED UNDERSTANDING OF D/C INSTRUCTIONS. PT PICKED UP BY AND STABLE AT TIME OF DISCHARGE. PATIENT TRANSPORTED HOME VIA PRIVATE CAR.
== END 2021-05-14 20:07 | disposition home or self-care (01) | DRG 682 ==
LOC: ER 17:53 → TELE1 20:55 → MEDSG1 05-11 07:51
PROVIDERS: ADMIT Student in an Organized Health Care Education/Training Program; ATTEND Nurse Practitioner Acute Care
PROC: 5A1D70Z Performance of Urinary Filtration, Intermittent, Less than 6 Hours Per Day (ICD-10-PCS; principal; 2021-05-09)
PROC: 30233N1 Transfusion of Nonautologous Red Blood Cells into Peripheral Vein, Percutaneous Approach (ICD-10-PCS; 2021-05-09)
DX: I12.0 Hypertensive chronic kidney disease with stage 5 chronic kidney disease or end stage renal disease (principal); N18.6 End stage renal disease; E43 Unspecified severe protein-calorie malnutrition; E87.1 Hypo-osmolality and hyponatremia; G90.8 Other disorders of autonomic nervous system; D72.829 Elevated white blood cell count, unspecified; Z99.2 Dependence on renal dialysis; Z86.73 Personal history of transient ischemic attack (TIA), and cerebral infarction without residual deficits; E11.22 Type 2 diabetes mellitus with diabetic chronic kidney disease; D63.1 Anemia in chronic kidney disease; Z79.899 Other long term (current) drug therapy; I77.6 Arteritis, unspecified; E11.65 Type 2 diabetes mellitus with hyperglycemia; E88.09 Other disorders of plasma-protein metabolism, not elsewhere classified; W19.XXXA Unspecified fall, initial encounter; Y92.009 Unspecified place in unspecified non-institutional (private) residence as the place of occurrence of the external cause
CPT/HCPCS: 36415; 70450-TC; 71045-TC; 80048-TC; 80061-TC; 80076-TC; 80202-TC; 82962-TC; 83735-TC; 84100-TC; 84443-TC; 85025-TC; 85730-TC; 86706; 86850-TC; 87040-TC; 87070-TC; 87081-TC; 87086-TC; 87340; 90935-TC; 97116-TC; 97530-TC; C9803; G0378; G0480; J1815; J1940; J2543; J3370; J3490; J7030; J7050; J7060; J7500; P9016